=== PATIENT | male | born 1965 | race Caucasian/White ===

== ENCOUNTER → 2016-12-13 | Outpatient (CLI) | payer BC ==
--- NOTE | 2016-12-13 13:58 | Diagnostic Imaging Report ---
EXAMINATION: Right breast ultrasound. INDICATION: Retroareolar lump and pain. FINDINGS: There is a nonspecific hypoechoic lesion measuring 7 mm in the retroareolar region with increased surrounding vascularity. This may correlate with the fibroglandular tissue seen on mammography with no suspicious mass. The four-quadrants and retroareolar region were scanned with no other abnormalities identified. IMPRESSION: The findings are suggestive of right breast gynecomastia. Clinical followup is recommended. If there is further enlargement of the lump or other clinical concern, then followup imaging could be obtained. ACR BI-RADS Category 2: Benign findings. Dictated by: Dictated on workstation # [id number]
--- NOTE | 2016-12-13 18:03 | Diagnostic Imaging Report ---
Right breast diagnostic mammogram. The current study was also evaluated with a Computer Aided Detection (CAD) system. No prior studies are available for comparison. INDICATION: Pain and lump in the right breast. FINDINGS: The retroareolar region demonstrates focal asymmetry with flame-shaped borders mimicking fibroglandular tissues suggestive of gynecomastia. No significant gynecomastia is seen along the left MLO view obtained for comparison. IMPRESSION: Findings suggestive of gynecomastia. Ultrasound evaluation pending. ACR BI-RADS Category 0: Incomplete. (Needs additional imaging evaluation). Result letter will be mailed to the patient. Note: At least 10% of breast cancer is not imaged by mammography. Dictated by: Dictated on workstation # [id number]
== END ==
LOC: RAD 09:13
PROVIDERS: ATTEND Nurse Practitioner Family
DX: N63 Unspecified lump in breast (principal)
CPT/HCPCS: 76641

== ENCOUNTER → 2017-01-17 | Outpatient (CLI) | payer BC ==
[~2017-01-17] MED LIST: GADOBUTROL 10 MMOL/10 ML (GADAVIST) VIAL IV ONE
[2017-01-17 13:03] LABS: ALANINE AMINOTRANSFERASE 35 U/L (0-55); ANION GAP 8 MMOL/L (5-14); ASPARTATE AMINO TRANSFERASE 25 U/L (5-34); BILIRUBIN,TOTAL 0.5 MG/DL (0.1-1.0); BLOOD UREA NITROGEN 13 MG/DL (7-18); BUN/CREATININE RATIO 16; CALCIUM 9.3 MG/DL (8.5-10.1); CARBON DIOXIDE 24 MMOL/L (21-32); CHLORIDE 106 MMOL/L (98-107); CREATININE SERUM 0.83 MG/DL (0.60-1.30); GFR ESTIMATED > 60; GLUCOSE 85 MG/DL (70-105); POTASSIUM 4.3 MMOL/L (3.6-5.0); SODIUM 138 MMOL/L (135-145)
--- NOTE | 2017-01-19 16:46 | Diagnostic Imaging Report ---
EXAMINATION: MRI breast with and without contrast. INDICATION: Right breast lump. TECHNIQUE: An MRI of the breast was performed utilizing bilateral 8-channel breast coil with a 1.5 Anayeli GE magnet. High-resolution sagittal T2-weighted fat-sat images were obtained as well as temporal images for sequential evaluation following intravenous gadolinium. Images were processed and evaluated by [employer]. HISTORY: The diagnostic right mammogram and right breast ultrasound exam performed on 12/13/2016 indicated gynecomastia of the right breast. There was no abnormality of the left breast. FINDINGS: On this exam, there is still asymmetric fibroglandular tissue in the retroareolar region of the right breast. This appearance is quite similar to the recent mammogram. There is no abnormal enhancement of this area on the post contrast series and there is no abnormal washout in this region either. Consequently, I do suspect these findings are secondary to gynecomastia; however, if clinical concern regarding a palpable abnormality persists, then biopsy should still be considered and a surgical consult would be recommended. There is no abnormality of the left breast. IMPRESSION: 1. The asymmetric fibroglandular tissue in the right breast is most likely due to gynecomastia. There is no evidence of malignancy. Recommendations as above. 2. There is no abnormality of the left breast. 3. These results were discussed with Tesha Morrow APRN. ACR BI-RADS Category 2: Benign findings. Dictated by: Dictated on workstation # [id number]
== END ==
LOC: RAD 12:32
PROVIDERS: ATTEND Nurse Practitioner Family
DX: N64.4 Mastodynia (principal)
CPT/HCPCS: 36415; 77059; 80053

== ENCOUNTER → 2017-02-16 | Outpatient (CLI) | payer BC ==
--- NOTE | 2017-02-16 16:26 | Diagnostic Imaging Report ---
PROCEDURE: MR imaging cervical spine without contrast. TECHNIQUE: Multiplanar, multisequence MR imaging of the cervical spine was performed without contrast. INDICATION: Neck pain and stiffness. COMPARISON: There are no prior studies available for comparison. FINDINGS: On the T2 sagittal series, there is artifact involving the vertebral bodies of C3 through C7. It does appear that the patient has had an anterior fusion of these vertebral bodies with orthopedic fixation screws extending into the vertebral bodies from C3 through C7. The orthopedic hardware appears to be in good position, although the left orthopedic fixation screws at C3 and C4 are in close proximity to the foramen for the left vertebral artery. Sagittal images show that there is a disc bulge at the C3-4 level. The disc flattens the ventral aspect of the thecal sac and narrows the AP diameter to 7.6 mm. There is also narrowing of the neural foramen bilaterally at this level. At the C4-5 level, there is no evidence for central stenosis, but there is mild narrowing of the neural foramen on the right. At C5-6, there is no evidence for central stenosis, but there is mild narrowing of the neural foramen on the left. At C6-7, there is no sign of central stenosis, but there is mild narrowing of the neural foramen on the left. There is no abnormal signal arising from the cord or the vertebral bodies to indicate an acute abnormality. There is no sign of a paraspinal mass. The vertebral and carotid flow voids are evident bilaterally. IMPRESSION: 1. There are postsurgical changes consistent with an anterior fusion of C3 to C7. The orthopedic hardware seems to be in good position, although the orthopedic fixation screws on the left at C3 and C4 are in close proximity to the foramen for the left vertebral artery. 2. There is moderate central stenosis at C3-4, and there is narrowing of the neural foramen bilaterally at this level. 3. The remainder of the cervical spine is unremarkable for a high-grade central stenosis. There is mild narrowing of the neural foramen on the right at C4-5 and on the left at C5-6 and C6-7. 4. There is no sign of an acute bony abnormality or of a cord lesion. Dictated by: Dictated on workstation # [id number]
== END ==
LOC: RAD 15:01
PROVIDERS: ATTEND Nurse Practitioner Family
DX: M48.02 Spinal stenosis, cervical region (principal); Z98.1 Arthrodesis status
CPT/HCPCS: 72141

== ENCOUNTER → 2018-10-06 | Outpatient (CLI) | payer BC, OTHER ==
--- NOTE | 2018-10-06 11:09 | Diagnostic Imaging Report ---
PROCEDURE: US Thyroid. TECHNIQUE: Multiple real-time grayscale images were obtained of the thyroid in various projections. INDICATION: Hypothyroidism. COMPARISON: No prior studies are available for comparison. FINDINGS: Right lobe of the thyroid measures 5.2 x 2.3 x 1.8 cm and the left lobe measures 5.2 x 1.8 x 2.0 cm. Both lobes are heterogeneous in appearance. There is a small circumscribed nodule in the upper pole left lobe measuring 4 mm x 5 mm. No other thyroid masses are detected. Isthmus is 4 mm in thickness. IMPRESSION: Thyroid heterogeneity with subcentimeter left lobe nodule. No dominant thyroid mass is detected. Dictated by: Dictated on workstation # [id number]
== END ==
LOC: RAD 08:35
PROVIDERS: ATTEND Nurse Practitioner Family
DX: E04.1 Nontoxic single thyroid nodule (principal)
CPT/HCPCS: 76536

== ENCOUNTER → 2018-11-17 | Outpatient (CLI) | payer BC, OTHER ==
[~2018-11-17] MED LIST changes: +CATHETER FLUSH 10 ML SYR IV PRN; -GADOBUTROL 10 MMOL/10 ML (GADAVIST) VIAL IV ONE; +REGADENOSON 0.4 MG/5 ML SYR (LEXISCAN) IV ONE
[2018-11-17 08:41] VITALS: BP 118/73
[2018-11-17 08:45] VITALS: BP 128/80
--- NOTE | 2018-11-17 15:46 | STRESS TEST ---
DATE OF SERVICE: 11/17/2018 NUCLEAR MYOVIEW REPORT REFERRING PHYSICIAN: Jeb Samuels DO. In summary, the patient was injected with 10.33 mCi of technetium-99 Myoview and the resting images were obtained. Then, the patient received a stress dose of 29.8 mCi of technetium-99 Myoview. Throughout the test, there were no EKG changes. The resting and stress images were reviewed and compared with the short axis, horizontal long axis, and vertical long axis views. Review of the images showed good radiotracer uptake with no significant ischemia or infarction. SSS is 0. TID value 1.0. On the gated images, the left ventricle appeared to be in normal size with normal contractility. Calculated ejection fraction is 63%. CONCLUSION: 1. No ischemia or infarction on SPECT images. 2. Normal left ventricular size with normal contractility. Calculated ejection fraction is 63%. Job ID: [id number] DocumentID: [id number] Dictated Date: 11/17/2018 13:33:41 Exterminator Helper Date: 11/17/2018 15:45:31 Dictated By: CHARU SMALLS MD
== END ==
LOC: CARD 06:36
PROVIDERS: ATTEND Nurse Practitioner Family
DX: R07.9 Chest pain, unspecified (principal)
CPT/HCPCS: 78452; 93017

== ENCOUNTER → 2018-11-17 | Outpatient (CLI) | payer BC, OTHER ==
--- NOTE | 2018-11-17 10:18 | Diagnostic Imaging Report ---
PROCEDURE: CT abdomen and pelvis without contrast. TECHNIQUE: Multiple contiguous axial images were obtained through the abdomen and pelvis without the use of intravenous contrast. Auto Exposure Controls were utilized during the CT exam to meet ALARA standards for radiation dose reduction. INDICATION: Microhematuria. Patient also complains of right-sided pain. COMPARISON: No prior studies are available for comparison. FINDINGS: The lung bases are clear. The liver demonstrates diffuse low density consistent with hepatic steatosis. No discrete liver mass is identified. The gallbladder is surgically absent. No biliary duct dilatation is seen. Pancreas and spleen are unremarkable. No adrenal mass is detected. Right kidney contains a tiny cortical calcification, which appears to be associated with a 15 mm low density, likely a cyst. No other renal calcifications are identified. No definite ureteral calculi or evidence of hydronephrosis is detected. Aorta is nonaneurysmal. The small and large bowel loops are normal in caliber. Bladder is grossly unremarkable. Prostate is normal in size. Bowel loops are unremarkable. There is no obstruction. There is no ascites. No definite abdominal or pelvic lymphadenopathy is detected. Bony structures are nonacute. IMPRESSION: 1. Hepatic steatosis. 2. Right renal cyst with peripheral calcification. No definite nephrolithiasis or hydronephrosis is seen. Dictated by: Dictated on workstation # [id number]
== END ==
LOC: RAD 06:38
PROVIDERS: ATTEND Urology
DX: K76.0 Fatty (change of) liver, not elsewhere classified (principal); N28.1 Cyst of kidney, acquired; R31.29 Other microscopic hematuria; Z90.49 Acquired absence of other specified parts of digestive tract
CPT/HCPCS: 74176

== ENCOUNTER → 2018-11-28 | Outpatient (CLI) | payer BC ==
--- NOTE | 2018-11-28 13:09 | Diagnostic Imaging Report ---
PATIENT HISTORY: NECK PAIN. TECHNIQUE: Frontal, lateral, open-mouth odontoid, and swimmer's views of the cervical spine. COMPARISON: MRI from 02/16/2017 FINDINGS: There is anterior fusion of the cervical spine from C3 to C7. No hardware complication is seen. There are disc spacers at the interval levels. No acute fracture is seen. There is trace retrolisthesis at C3-4, which appears stable. There is a prominent anterior osteophyte at C2-3. The C1-2 alignment appears normal. IMPRESSION: 1. Anterior fusion of the cervical spine from C3 to C7 with no hardware complication or acute osseous abnormality seen. Dictated by: Dictated on workstation # [id number]
== END ==
LOC: RAD 11:20
PROVIDERS: ATTEND Nurse Practitioner Family
DX: M54.2 Cervicalgia (principal); Z98.1 Arthrodesis status
CPT/HCPCS: 72040

== ENCOUNTER → 2018-12-13 | Outpatient (CLI) | payer BC, OTHER ==
[~2018-12-13] MED LIST changes: -CATHETER FLUSH 10 ML SYR IV PRN; +GADOBUTROL 10 MMOL/10 ML (GADAVIST) VIAL IV ONE; -REGADENOSON 0.4 MG/5 ML SYR (LEXISCAN) IV ONE
[2018-12-13 14:23] LABS: BUN/CREATININE RATIO 19; GFR ESTIMATED > 60
--- NOTE | 2018-12-13 15:18 | Diagnostic Imaging Report ---
PROCEDURE: MR imaging of the brain with and without contrast. TECHNIQUE: Multiplanar, multisequence MR imaging of the brain was performed with and without contrast. INDICATION: Exposure to hazardous chemicals. Patient also complains of chronic headaches. COMPARISON: No prior studies are available for comparison. FINDINGS: The ventricles and sulci are within normal limits. No diffusion restriction is identified. The normal expected flow-voids within the carotid siphons are seen. No acute intra-axial or extra-axial hemorrhage is detected. No abnormal enhancement following contrast administration is seen. Corpus callosum is unremarkable. The sella and parasellar structures are unremarkable. IMPRESSION: Unremarkable pre- and postcontrast MRI of the brain. Dictated by: Dictated on workstation # [id number]
== END ==
LOC: RAD 13:52
PROVIDERS: ATTEND Nurse Practitioner Family
DX: K58.9 Irritable bowel syndrome, unspecified (principal); R51 Headache; Z77.098 Contact with and (suspected) exposure to other hazardous, chiefly nonmedicinal, chemicals
CPT/HCPCS: 36415; 70553; 82565; 84520

== ENCOUNTER → 2018-12-13 | Outpatient (CLI) | payer BC, OTHER ==
--- NOTE | 2018-12-13 15:02 | Diagnostic Imaging Report ---
PROCEDURE: MR imaging cervical spine without contrast. TECHNIQUE: Multiplanar, multisequence MR imaging of the cervical spine was performed without contrast. INDICATION: Chronic neck pain. Patient has prior history of cervical spine surgery in 2016. COMPARISON: Correlation is made with prior MRI of the cervical spine from 02/16/2017. FINDINGS: Curvature and alignment of the cervical spine is normal. Extensive surgical changes are noted. ACDF is noted extending from C3 through C7. Anterior plate and screws are noted. These do produce moderate artifact. Cervical spinal cord demonstrates normal signal intensity and normal morphology. Craniocervical junction is unremarkable. C2-C3: Central canal and neuroforamina are widely patent. C3-C4: Broad-based disc/osteophyte complex indents the ventral thecal sac. There is mild central canal narrowing at this level, similar to prior exam. There also appears to be moderate bilateral neuroforaminal narrowing. C4-C5: Uncovertebral joint degenerative change results in mild neuroforaminal narrowing bilaterally. No significant central canal stenosis is seen. C5-C6: Mild neuroforaminal narrowing is seen bilaterally. No significant central canal stenosis is seen. C6-C7: Moderate left and mild right neuroforaminal narrowing is seen. There is no significant central canal narrowing. C7-T1: Central canal is patent. There is moderate bilateral neuroforaminal stenosis due to uncovertebral joint degenerative change. IMPRESSION: Postop changes of ACDF at C3 through C7. C3-C4 central canal narrowing is similar to prior study. There is multilevel neuroforaminal narrowing, described level by level above. Dictated by: Dictated on workstation # [id number]
== END ==
LOC: RAD 13:00
PROVIDERS: ATTEND Nurse Practitioner Family
DX: M48.02 Spinal stenosis, cervical region (principal); M47.812 Spondylosis without myelopathy or radiculopathy, cervical region; Z98.1 Arthrodesis status
CPT/HCPCS: 72141

== ENCOUNTER 2019-02-01 15:49 | Outpatient (RCR) | payer BC | END 2019-02-27 11:05 | disposition home or self-care (01) | PROVIDERS: ATTEND Orthopaedic Surgery | DX: M48.02 Spinal stenosis, cervical region (principal); Z98.1 Arthrodesis status ==

== ENCOUNTER → 2019-03-22 | Outpatient (CLI) | payer BC ==
--- NOTE | 2019-03-22 12:54 | Diagnostic Imaging Report ---
PROCEDURE: US Thyroid. TECHNIQUE: Multiple real-time grayscale images were obtained of the thyroid in various projections. INDICATION: Hypothyroidism. FINDINGS: The previous thyroid ultrasound exam performed on 10/06/2018 noted that the thyroid gland was prominent but not enlarged. Each lobe had a heterogeneous appearance, and there was a small 5 mm hypoechoic nodule with a hyperechoic center in the left lobe of the thyroid. On this exam, the appearance of the thyroid gland does not appear to have changed significantly since the prior study. The right lobe measures 5.1 x 2.1 x 1.8 cm while the left lobe is estimated to be 4.3 x 1.3 x 1.8 cm (normal gland size 4-5 x 2 x 2 cm or less). The small area of mixed echogenicity in the left lobe of the thyroid seen previously is again evident and now measures approximately 4 mm. There is no other discrete solid or cystic mass within either lobe identified. IMPRESSION: When compared to the previous study, there does not appear to have been any significant change. The small subcentimeter nodule in the left lobe seems stable. No new solid or cystic mass has developed within the thyroid gland. Dictated by: Dictated on workstation # [id number]
== END ==
LOC: RAD 10:37
PROVIDERS: ATTEND Nurse Practitioner Family
DX: E03.9 Hypothyroidism, unspecified (principal); R91.8 Other nonspecific abnormal finding of lung field
CPT/HCPCS: 76536

== ENCOUNTER 2019-04-23 11:32 | Outpatient (RCR) | payer BC ==
[2019-07-17] MEDS ORDERED: LISI1TAB26 PO (11:54)
[2019-07-17] MEDS ORDERED: LEVO1CAP11 PO (11:54)
[2019-07-17] MEDS ORDERED: PREG150C PO (11:54)
[2019-07-17] MEDS ORDERED: LEVO75TA6 PO (11:54)
[2019-07-17] MEDS ORDERED: NYST50002 PO (11:54)
[2019-07-17] MEDS ORDERED: RIFA550T PO (11:54)
== END 2019-07-22 | disposition home or self-care (01) ==
LOC: LAB 11:32
PROVIDERS: ATTEND Nurse Practitioner Family
DX: R10.9 Unspecified abdominal pain (principal); R19.7 Diarrhea, unspecified
CPT/HCPCS: 82274; 87015; 87045; 87046; 87324; 87328; 87329; 87449; 87899

== ENCOUNTER → 2019-07-02 | Outpatient (CLI) | payer BC ==
--- NOTE | 2019-07-02 08:49 | Diagnostic Imaging Report ---
PROCEDURE: CT abdomen and pelvis without contrast. TECHNIQUE: Multiple contiguous axial images were obtained through the abdomen and pelvis without the use of intravenous contrast. Auto Exposure Controls were utilized during the CT exam to meet ALARA standards for radiation dose reduction. INDICATION: Right-sided abdominal pain. Correlation made with prior CT from 11/17/2018. FINDINGS: Lung bases are clear. Liver continues to show diffuse low density consistent with hepatic steatosis. No discrete liver mass is identified. Gallbladder is surgically absent. No biliary ductal dilatation is identified. Pancreas and spleen are unremarkable. No adrenal mass is detected. A small cortical low density with peripheral calcification involving the right kidney appears to be stable at approximately 17 mm compared with 15 mm. This is difficult to accurately measure due to absence of IV contrast. The left kidney is unremarkable. No definite renal calculi are seen. No ureteral calculi or hydronephrosis is detected. No bladder calculi are seen. The aorta is normal caliber. The small and large bowel loops are normal caliber. No obstruction is identified. There is no free fluid in the abdomen or pelvis. No inflammatory process is detected. The prostate is unremarkable. IMPRESSION: Stable noncontrast CT of abdomen and pelvis when compared with examination from 11/17/2018. No acute process is detected. Dictated by: Dictated on workstation # [id number]
== END ==
LOC: RAD 08:23
PROVIDERS: ATTEND Internal Medicine
DX: R10.11 Right upper quadrant pain (principal)
CPT/HCPCS: 74176

== ENCOUNTER 2019-07-17 12:08 | Outpatient (CLI) | payer BC ==
[~2019-07-17] VITALS: Ht 170 cm; Wt 113.6 kg
[~2019-07-17 12:08] MED LIST changes: -GADOBUTROL 10 MMOL/10 ML (GADAVIST) VIAL IV ONE; +LEVO1CAP11 PO; +LEVO75TA6 PO; +LISI1TAB26 PO; +NYST50002 PO; +PREG150C PO; +RIFA550T PO
== END 2019-07-17 12:14 | disposition home or self-care (01) ==
LOC: PREOP 12:08
PROVIDERS: ATTEND Internal Medicine
DX: Z01.818 Encounter for other preprocedural examination (principal)

== ENCOUNTER → 2019-08-06 | Outpatient (CLI) | payer BC, OTHER ==
--- NOTE | 2019-08-06 08:39 | Diagnostic Imaging Report ---
INDICATION: Right sided back and abdominal pain. COMPARISON: None available. TECHNIQUE: Multiplanar, multisequence MR imaging of the thoracic spine was performed without contrast. FINDINGS: Normal kyphosis of the thoracic spine. No fracture or marrow replacing process. No features of active facet synovitis. No interspinous degenerative change. The thoracic cord is normal in size and signal. Specifically, there are no features of demyelinating disease. No epidural fluid collection. No foraminal narrowing. Central disc bulges are present at T4-T5 through T8-T9. These cause effacement of the ventral thecal sac at T4-T5 about the ventral aspect of the cord; however, there is no compression of the thoracic cord at any level. The paravertebral musculature is normal. No mediastinal lymphadenopathy. The distal esophagus is normal in appearance. IMPRESSION: 1. No fracture or bone abnormality in the thoracic spine. 2. Mild degenerative disc disease in the mid to lower thoracic spine causes mild spinal stenosis but does not compress the thoracic cord. 3. Normal thoracic cord. Dictated by: Dictated on workstation # [id number]
== END ==
LOC: RAD 07:25
PROVIDERS: ATTEND Internal Medicine
DX: M48.04 Spinal stenosis, thoracic region (principal); M51.34 Other intervertebral disc degeneration, thoracic region; R10.11 Right upper quadrant pain; M79.7 Fibromyalgia
CPT/HCPCS: 72146

== ENCOUNTER → 2020-07-21 | Outpatient (CLI) | payer BC ==
--- NOTE | 2020-07-21 16:39 | Diagnostic Imaging Report ---
INDICATION: PNEUMONIA, DYSPNEA, COUGH WITH FEVER, COVID INFECTION, FRANCISCO MTN FEVER. COVID positive on June 20, 2020. TECHNIQUE: Two-view chest at 04:11 p.m. CORRELATION STUDY: None. FINDINGS: The heart size, mediastinal configuration and pulmonary vasculature are within normal limits. The lungs are clear with no consolidating infiltrate. There is no significant pleural effusion or pneumothorax. Mildly advanced degenerative changes of the thoracic spine. Cervicothoracic spinal fixation hardware is present. Prior surgical changes of the left humeral head. IMPRESSION: 1. Negative for acute abnormality of the chest. Dictated by: Dictated on workstation # [id number]
== END ==
LOC: RAD 15:36
PROVIDERS: ATTEND Nurse Practitioner Family
DX: J15.8 Pneumonia due to other specified bacteria (principal); U07.1 COVID-19; A77.0 Spotted fever due to Rickettsia rickettsii
CPT/HCPCS: 71046

== ENCOUNTER → 2020-07-22 | Outpatient (CLI) | payer BC ==
--- NOTE | 2020-07-22 15:11 | Diagnostic Imaging Report ---
PROCEDURE: US Venous Lower Ext Pratik. TECHNIQUE: Multiple real-time grayscale images were obtained over the lower extremities in various projections, bilaterally. Additional duplex Doppler and color Doppler images were also obtained. INDICATION: Bilateral lower extremity pain and elevated d-dimer EXAMINATION: Grayscale and color Doppler evaluation of the deep veins of both lower extremities were performed with waveform analysis. FINDINGS: Continuous venous flow is present. No intraluminal filling defect is identified. There is normal compressibility and response to augmentation. No abnormal perivascular fluid collection is identified. IMPRESSION: No ultrasound evidence of lower extremity deep venous thrombosis. Dictated by: Dictated on workstation # [id number]
== END ==
LOC: RAD 13:34
PROVIDERS: ATTEND Nurse Practitioner Family
DX: U07.1 COVID-19 (principal); M79.605 Pain in left leg; M79.604 Pain in right leg; R79.89 Other specified abnormal findings of blood chemistry
CPT/HCPCS: 93970

== ENCOUNTER → 2022-02-10 | Outpatient (CLI) | payer BC ==
[~2022-02-10] MED LIST changes: -LISI1TAB26 PO; +LISI1TAB48 PO
--- NOTE | 2022-02-10 12:47 | Diagnostic Imaging Report ---
INDICATION: Left hip pain 2 views of left hip shows narrowing of the superior joint space of left hip with osteophytes forming at the articular margins. IMPRESSION: Moderate degenerative changes left hip consistent with osteoarthritis. There is no fracture or dislocation. Dictated by: Dictated on workstation # [id number]
== END ==
LOC: RAD
PROVIDERS: ATTEND Family Medicine
DX: M16.12 Unilateral primary osteoarthritis, left hip (principal)
CPT/HCPCS: 73502